=== PATIENT | female | born 1995 | race Caucasian/White ===

== ENCOUNTER → 2016-05-28 | Outpatient (CLI) | payer SELFPAY | LOC: RAD 09:33 | PROVIDERS: ATTEND Nurse Practitioner Women's Health | DX: Z34.01 Encounter for supervision of normal first pregnancy, first trimester (principal) | CPT/HCPCS: 76801 ==

== ENCOUNTER 2016-05-29 22:06 | Emergency (ER) | payer SELFPAY ==
--- NOTE | 2016-05-29 23:58 | ER Document Report ---
ED Medical Screen (RME) - General Chief Complaint: Abdominal Pain Stated Complaint: LOWER RIGHT ABDOMINAL/FLANK PAIN Notes: Patient is a 20-year-old female at 11 weeks gestation by first trimester ultrasound within the past 2 days that comes emergency department for chief complaint of right lower quadrant pain that started to become sharp 4 hours ago , pain is persistent and worsening, pain is worse with movement and walking. Patient denies nausea vomiting, denies other locations of pain, denies fever or chills, denies vaginal bleeding or discharge. TRAVEL OUTSIDE OF THE [place] IN LAST 30 DAYS: No - Related Data Allergies/Adverse Reactions: No Known Allergies Allergy (Unverified 05/29/16 23:44) Past Medical History - Social History Chew tobacco use (# tins/day): No Frequency of alcohol use: None Drug Abuse: None - Past Medical History Cardiac Medical History: Denies: Hx Hypertension Pulmonary Medical History: Denies: Hx COPD Neurological Medical History: Denies: Hx Cerebrovascular Accident Endocrine Medical History: Denies: Hx Diabetes Mellitus Type 2 Renal/ Medical History: Denies: Hx Peritoneal Dialysis, Hx Renal Insufficiency GI Medical History: Reports: Hx Ulcer - Found on endoscopy 3 years ago Physical Exam - Vital signs Vitals: Temp Pulse Resp BP Pulse Ox 98.0 F 112 H 22 H 120/78 100 05/29/16 23:14 05/29/16 23:14 05/29/16 23:14 05/29/16 23:14 05/29/16 23:14 - Abdominal Tenderness: Tender - patient cries out with palpation of RLQ, limited due to sitting, McBurney's point Course - Re-evaluation Re-evalutation: Ultrasound on 05/28/2016 shows living IUP at 10 weeks 4 days. Patient appears to be guarding right lower quadrant, slightly limited by chair exam. - Vital Signs Vital signs: Temp Pulse Resp BP Pulse Ox 98.0 F 112 H 22 H 120/78 100 05/29/16 23:14 05/29/16 23:14 05/29/16 23:14 05/29/16 23:14 05/29/16 23:14
[2016-05-30 03:15] LABS: ABSOLUTE EOSINOPHILS # (AUTO) 0.1 10^3/uL (0.0-0.6); ABSOLUTE LYMPHOCYTES (AUTO) 2.7 10^3/uL (0.5-4.7); ABSOLUTE MONOCYTES (AUTO) 0.4 10^3/uL (0.1-1.4); ABSOLUTE NEUT (AUTO) 6.5 10^3/uL (1.7-8.2); BASOPHILS % (AUTO) 0.5 % (0-2); EOSINOPHILS % (AUTO) 0.7 % (0-6); HEMATOCRIT 38.8 % (36.0-47.0); HEMOGLOBIN 13.1 g/dL (12.0-15.5); HGB HCT DIFFERENCE 0.5; LYMPHOCYTES % (AUTO) 27.5 % (13-45); MEAN CORPUSCULAR HEMOGLOBIN 29.2 pg (27.0-33.4); MEAN CORPUSCULAR HGB CONC 33.8 g/dL (32.0-36.0); MEAN CORPUSCULAR VOLUME 86 fl (80-97); MONOCYTES % (AUTO) 4.4 % (3-13); RED BLOOD COUNT 4.49 10^6/uL (3.72-5.28); RED CELL DISTRIBUTION WIDTH 13.2 % (11.5-14.0); SEGMENTED NEUTROPHILS % (AUTO) 66.9 % (42-78); WHITE BLOOD COUNT 9.7 10^3/uL (4.0-10.5)
[2016-05-30 03:16] LABS: APPEARANCE,URINE TURBID; BILIRUBIN,URINE NEGATIVE (NEGATIVE); GLUCOSE, URINE NEGATIVE (NEGATIVE); KETONES,URINE NEGATIVE (NEGATIVE); LEUKOCYTE ESTERASE,URINE LARGE (NEGATIVE); NITRITE,URINE NEGATIVE (NEGATIVE); PROTEIN,URINE 30 mg/dL (NEGATIVE); URINE SPECIFIC GRAVITY 1.031; UROBILINOGEN,URINE NEGATIVE mg/dL (<2.0)
[2016-05-30 03:24] LABS: ALANINE AMINOTRANSFERASE 29 U/L (9-52); ALBUMIN 4.2 g/dL (3.5-5.0); ALKALINE PHOSPHATASE 55 U/L (38-126); ANION GAP 14 (5-19); ASPARTATE AMINO TRANSFERASE 20 U/L (14-36); BILIRUBIN,TOTAL 0.4 mg/dL (0.2-1.3); BLOOD UREA NITROGEN 10 mg/dL (7-20); CALCIUM 10.5 mg/dL (8.4-10.2); CARBON DIOXIDE 23 mmol/L (22-30); CHLORIDE 102 mmol/L (98-107); CREATININE RESULT 0.65 mg/dL (0.52-1.25); GLUCOSE 89 mg/dL (75-110); POTASSIUM 4.3 mmol/L (3.6-5.0); SODIUM 138.8 mmol/L (137-145); TOTAL PROTEIN 7.7 g/dL (6.3-8.2)
[2016-05-30] MEDS ORDERED: CEFTRIAXONE 1 GM/D5W RTU 50 ML IV ONE (05:44)
[2016-05-30] MEDS ORDERED: NORMAL SALINE 1000 ML 1,000 ML IV ONE (05:44)
--- NOTE | 2016-05-30 06:16 | ER Document Report ---
ED GI/ - General Chief Complaint: Abdominal Pain Stated Complaint: LOWER RIGHT ABDOMINAL/FLANK PAIN Notes: Patient is a 20-year-old female at 11 weeks gestation by first trimester ultrasound within the past 2 days that comes emergency department for chief complaint of right sided abdominal pain that started to become sharp 4 hours ago , pain is persistent and worsening, pain is worse with movement and walking. Patient denies nausea vomiting, denies other locations of pain, denies fever or chills, denies vaginal bleeding or discharge. TRAVEL OUTSIDE OF THE [place] IN LAST 30 DAYS: No - Related Data Allergies/Adverse Reactions: No Known Allergies Allergy (Unverified 05/29/16 23:44) Past Medical History - General Information source: Patient - Social History Smoking Status: Former Smoker Chew tobacco use (# tins/day): No Frequency of alcohol use: None Drug Abuse: None Lives with: Family Family History: Other - Mother with stroke and brain tumor Father diabetes and hypertension Patient has suicidal ideation: No Patient has homicidal ideation: No - Past Medical History Cardiac Medical History: Denies: Hx Hypertension Pulmonary Medical History: Denies: Hx COPD Neurological Medical History: Denies: Hx Cerebrovascular Accident Endocrine Medical History: Denies: Hx Diabetes Mellitus Type 2 Renal/ Medical History: Denies: Hx Peritoneal Dialysis, Hx Renal Insufficiency GI Medical History: Reports: Hx Ulcer - Found on endoscopy 3 years ago - Immunizations Immunizations up to date: Yes Hx Diphtheria, Pertussis, Tetanus Vaccination: Yes Review of Systems - Review of Systems Constitutional: No symptoms reported EENT: No symptoms reported Cardiovascular: No symptoms reported Respiratory: No symptoms reported Gastrointestinal: See HPI Genitourinary: No symptoms reported Female Genitourinary: No symptoms reported Musculoskeletal: No symptoms reported Skin: No symptoms reported Hematologic/Lymphatic: No symptoms reported Neurological/Psychological: No symptoms reported Physical Exam - Vital signs Vitals: Temp Pulse Resp BP Pulse Ox 98.0 F 112 H 22 H 120/78 100 05/29/16 23:14 05/29/16 23:14 05/29/16 23:14 05/29/16 23:14 05/29/16 23:14 Interpretation: Normal - General General appearance: Appears well, Alert - HEENT Head: Normocephalic, Atraumatic Eyes: Normal Pupils: PERRL - Respiratory Respiratory status: No respiratory distress Chest status: Nontender Breath sounds: Normal Chest palpation: Normal - Cardiovascular Rhythm: Regular, Tachycardia Heart sounds: Normal auscultation, S1 appreciated, S2 appreciated Murmur: No - Abdominal Inspection: Normal Distension: No distension Bowel sounds: Normal Tenderness: Tender - Reexamination of the abdomen does not show right lower quadrant tenderness, tenderness is in the right upper quadrant, no guarding. No : Guarding Organomegaly: No organomegaly - Back Back: Normal, Nontender. No: Tender, CVA tenderness - No overt CVA tenderness - Extremities General upper extremity: Normal inspection, Nontender, Normal color, Normal ROM , Normal temperature General lower extremity: Normal inspection, Nontender, Normal color, Normal ROM , Normal temperature, Normal weight bearing. No: Karen's sign - Neurological Neuro grossly intact: Yes Cognition: Normal Orientation: AAOx4 [place] Coma Scale Eye Opening: Spontaneous [place] Coma Scale Verbal: Oriented [place] Coma Scale Motor: Obeys Commands [place] Coma Scale Total: 15 Speech: Normal Motor strength normal: LUE, RUE, LLE, RLE Sensory: Normal - Psychological Associated symptoms: Normal affect, Normal mood - Skin Skin Temperature: Warm Skin Moisture: Dry Skin Color: Normal Course - Re-evaluation Re-evalutation: Patient points to mid to lower abdomen all sitting and asked for her pain is, however when patient was reevaluated on the bed in the room examination shows that tenderness is much more concentrated in significant in the right upper quadrant. Patient reports that the right lower abdominal pain has resolved, there is no longer any tenderness in the right lower quadrant on reexamination. Ultrasound had already been performed from triage, discussed with Dr. Fuentes per [facility] guidelines, but this was unremarkable. CBC unremarkable, history unremarkable, urine is showing white blood cells but also has very large amount squamous epithelials. Patient is are on Keflex antibiotic reportedly, has several days left of the prescription, cultured, patient given Rocephin because patient also has right flank pain on examination. Patient declining any additional workup, states she has had similar pains in the past and she was told that she needed her gallbladder taken care of, states that she'll follow with her provider for additional evaluation of this. Patient given IV fluids, tachycardia resolved. Discussed return precautions. Patient states understanding and agreement. - Vital Signs Vital signs: Temp Pulse Resp BP Pulse Ox 98.3 F 83 16 110/59 L 99 05/30/16 07:41 05/30/16 07:41 02/02/17 07:41 05/30/16 07:41 05/30/16 07:41 - Laboratory Result Diagrams: 05/30/16 02:56 05/30/16 02:56 Laboratory results interpreted by me: 05/30/16 05/30/16 02:56 02:56 Calcium 10.5 H Urine Protein 30 H Ur Leukocyte Esterase LARGE H Urine Ascorbic Acid 40 H Discharge - Discharge Clinical Impression: Abdominal pain Qualifiers: Abdominal location: unspecified location Qualified Code(s): R10.9 - Unspecified abdominal pain Condition: Stable Disposition: HOME, SELF-CARE Additional Instructions: You have been given a dose of Rocephin, we have a urine culture growing in our lab, continue your Keflex. On reexamination your symptoms actually are suspected to be gallbladder in nature. Follow-up with your provider for continued evaluation and treatment. Return to the emergency department for any concerning or worsening symptoms including severe abdominal pain, vaginal bleeding, fever, uncontrolled vomiting , etc. Forms: Return to Work
[2016-05-30 07:45] VITALS: BP 110/59
== END 2016-05-30 07:45 | disposition home or self-care (01) ==
LOC: ER 22:06
DX: R10.9 Unspecified abdominal pain (principal); R10.30 Lower abdominal pain, unspecified; Z87.891 Personal history of nicotine dependence
CPT/HCPCS: 99284; 96365; 36415; 87086; 85025; 80053; 81001; 76705; J7030; J0696

== ENCOUNTER 2016-06-01 18:01 | Emergency (ER) | payer MEDICAID ==
--- NOTE | 2016-06-01 18:13 | ER Document Report ---
ED Medical Screen (RME) - General Stated Complaint: COUGHING UP BLOOD Notes: Patient states she was seen in the emergency room 3 days ago for abdominal and back pain. States possibility of gallbladder problems. Continues to have the pain, but now nausea and vomiting and unable to keep anything down. While in shower today patient felt like she was choking, and coughed up a blood clot. Nothing since. No known fever. Patient is about 11 weeks . Pain is worse with food. I have greeted and performed a rapid initial assessment of this patient. A comprehensive ED assessment and evaluation of the patient, analysis of test results and completion of the medical decision making process will be conducted by additional ED providers. TRAVEL OUTSIDE OF THE [place] IN LAST 30 DAYS: No - Related Data Allergies/Adverse Reactions: No Known Allergies Allergy (Verified 06/01/16 18:11) Past Medical History - Past Medical History Cardiac Medical History: Denies: Hx Hypertension Pulmonary Medical History: Denies: Hx COPD Neurological Medical History: Denies: Hx Cerebrovascular Accident Endocrine Medical History: Denies: Hx Diabetes Mellitus Type 2 Renal/ Medical History: Denies: Hx Peritoneal Dialysis, Hx Renal Insufficiency GI Medical History: Reports: Hx Ulcer - Found on endoscopy 3 years ago - Immunizations Immunizations up to date: Yes Hx Diphtheria, Pertussis, Tetanus Vaccination: Yes
[2016-06-01] MEDS ORDERED: DEXTROSE 5%-NORMAL SALINE 1,000 ML IV ONE (18:52)
[2016-06-01 18:53] LABS: ABSOLUTE EOSINOPHILS # (AUTO) 0.1 10^3/uL (0.0-0.6); ABSOLUTE LYMPHOCYTES (AUTO) 1.5 10^3/uL (0.5-4.7); ABSOLUTE MONOCYTES (AUTO) 0.5 10^3/uL (0.1-1.4); ABSOLUTE NEUT (AUTO) 7.3 10^3/uL (1.7-8.2); BASOPHILS % (AUTO) 0.3 % (0-2); EOSINOPHILS % (AUTO) 0.6 % (0-6); HEMATOCRIT 38.7 % (36.0-47.0); HEMOGLOBIN 12.9 g/dL (12.0-15.5); LYMPHOCYTES % (AUTO) 15.6 % (13-45); MEAN CORPUSCULAR HEMOGLOBIN 28.8 pg (27.0-33.4); MEAN CORPUSCULAR HGB CONC 33.3 g/dL (32.0-36.0); MEAN CORPUSCULAR VOLUME 87 fl (80-97); MONOCYTES % (AUTO) 5.2 % (3-13); RED BLOOD COUNT 4.47 10^6/uL (3.72-5.28); SEGMENTED NEUTROPHILS % (AUTO) 78.3 % (42-78); WHITE BLOOD COUNT 9.3 10^3/uL (4.0-10.5)
[2016-06-01] MEDS ORDERED: METOCLOPRAMIDE HCL INJ/PF 10 MG/2 ML SDV IV ONE (18:53)
[2016-06-01] MEDS ORDERED: DIPHENHYDRAMINE HCL 50 MG/ML VIAL IV ONE (18:53)
[2016-06-01 18:57] LABS: APPEARANCE,URINE SLIGHTLY-CLOUDY; BILIRUBIN,URINE NEGATIVE (NEGATIVE); GLUCOSE, URINE NEGATIVE (NEGATIVE); KETONES,URINE TRACE mg/dL (NEGATIVE); LEUKOCYTE ESTERASE,URINE TRACE (NEGATIVE); NITRITE,URINE NEGATIVE (NEGATIVE); PROTEIN,URINE NEGATIVE (NEGATIVE); URINE SPECIFIC GRAVITY 1.027; UROBILINOGEN,URINE NEGATIVE mg/dL (<2.0)
--- NOTE | 2016-06-01 19:01 | ER Document Report ---
ED General - General Chief Complaint: Abdominal Pain Stated Complaint: COUGHING UP BLOOD Time seen by provider: 18:59 Mode of Arrival: Ambulatory Information source: Patient Notes: This is a 20-year-old female 1 para 0, 11 weeks who does have a history of gallstones. The patient presents to the emergency room with upper abdominal pain, nausea and vomiting. Patient has been in the ER both here and at [place]. Last night she was treated with fluids and IV Zofran at [place] [facility]. She was released and presents with recurrent symptoms. Patient states she was in the shower when she coughed up some blood. She denies any chest pain or shortness of breath and the blood was more in the context of excessive vomiting. She describes it as some bloody flecks in the vomitus. He shouldn't does note being treated for UTI with Keflex (from the health Department). Her next appointment with the health Department is June 19. TRAVEL OUTSIDE OF THE [place] IN LAST 30 DAYS: No - HPI Onset: Last week Onset/Duration: Gradual Quality of pain: Dull Severity: Mild Pain Level: 1 Associated symptoms: Nausea, Vomiting, Weakness. denies: Chills, Fever Exacerbated by: Denies Relieved by: Denies Similar symptoms previously: Yes Recently seen / treated by doctor: Yes - Related Data Allergies/Adverse Reactions: No Known Allergies Allergy (Verified 06/01/16 18:11) Past Medical History - General Information source: Patient - Social History Smoking Status: Never Smoker Cigarette use (# per day): No Chew tobacco use (# tins/day): No Frequency of alcohol use: None Drug Abuse: None Lives with: Family Family History: Other - Mother with stroke and brain tumor Father diabetes and hypertension Patient has suicidal ideation: No Patient has homicidal ideation: No - Past Medical History Cardiac Medical History: Denies: Hx Hypertension Pulmonary Medical History: Denies: Hx COPD Neurological Medical History: Denies: Hx Cerebrovascular Accident Endocrine Medical History: Reports: None. Denies: Hx Diabetes Mellitus Type 2 Renal/ Medical History: Denies: Hx Peritoneal Dialysis, Hx Renal Insufficiency Malignancy Medical History: Reports: None GI Medical History: Reports: Hx Ulcer - Found on endoscopy 3 years ago Psychiatric Medical History: Reports: None Traumatic Medical History: Reports: None Infectious Medical History: Reports: None Surgical Hx: Negative - Immunizations Immunizations up to date: Yes Hx Diphtheria, Pertussis, Tetanus Vaccination: Yes Review of Systems - Review of Systems Notes: Review of systems: Constitutional: Denies fever, chills. EENT: Denies ear pain, sinus tenderness, throat pain, throat swelling. Cardiovascular: Denies chest pain, palpitations, dyspnea or edema. Respiratory: Denies wheezing, cough, hemoptysis. Abdomen: Positive nausea, positive vomiting. Patient did have small amount of flecks of blood in the vomitus after a forceful balm vomiting once. She does state she's had some upper abdominal discomfort. Denies BRBPR or melena. Genitourinary: Denies dysuria, pyuria, hematuria, flank pain. Musculoskeletal: denies joint pain or swelling, denies back pain. Neurologic: Denies headache, photophobia, neck stiffness, weakness. Denies loss of bowel or bladder function. Denies saddle anesthesia. Skin: Denies rash, lesions. Physical Exam - Vital signs Vitals: Temp Pulse Resp BP Pulse Ox 97.7 F 125 H 20 121/72 100 06/01/16 18:09 06/01/16 18:09 06/01/16 18:09 06/01/16 18:09 06/01/16 18:09 Notes: Physical exam: GENERAL: 20-year-old female, alert and oriented 3, no acute distress. HEAD: Atraumatic, normocephalic. EYES: Pupils equal round and reactive to light, extraocular movements intact, sclera anicteric, conjunctiva are normal. ENT: TMs normal, nares patent, oropharynx clear without exudates. Moist mucous membranes. NECK: Normal range of motion, supple without lymphadenopathy or JVD. LUNGS: Breath sounds clear to auscultation bilaterally and equal. No wheezes rales or rhonchi. HEART: Regular rate and rhythm without murmurs, rubs or gallops. ABDOMEN: Soft, normoactive bowel sounds. Mild upper abdominal tenderness without rebound or guarding. No masses appreciated. EXTREMITIES: Normal range of motion, no pitting or edema. No clubbing or cyanosis. NEUROLOGICAL: Cranial nerves II through XII grossly intact. Normal speech, normal gait. PSYCH: Normal mood, normal affect. SKIN: Warm, Dry, normal turgor, no rashes or lesions noted. Course - Re-evaluation Re-evalutation: 06/01/16 19:02 Note: I reviewed the patient's urine culture which does not show any growth after 2 days. 06/02/16 00:23 Patient was given IV fluids, IV Reglan and her symptoms are much improved. Right upper quadrant ultrasound is normal. Patient is ready to go home. I did discuss the symptoms with her. I did reassure her. I will send her home with some Reglan. - Vital Signs Vital signs: Temp Pulse Resp BP Pulse Ox 98.2 F 18 L 18 113/55 L 99 06/01/16 22:38 06/01/16 22:38 06/01/16 22:38 06/01/16 22:38 06/01/16 22:38 - Laboratory Result Diagrams: 06/01/16 18:30 06/01/16 18:30 Laboratory results interpreted by me: 06/01/16 06/01/16 06/01/16 18:30 18:30 18:30 Seg Neutrophils % 78.3 H Carbon Dioxide 21 L Creatinine 0.51 L Beta HCG, Quant 322372.00 H Urine Ketones TRACE H Ur Leukocyte Esterase TRACE H - Diagnostic Test Radiology reviewed: Image reviewed, Reports reviewed - Right upper quadrant ultrasound was normal. Discharge - Discharge Clinical Impression: Hyperemesis gravidarum Condition: Stable Disposition: HOME, SELF-CARE Instructions: Intravenous (IV) Fluids ([facility]), Antinausea Medication ([facility]) Additional Instructions: Recommendations: As we discussed, the gallbladder ultrasound looked good. The blood in the vomit could be from forceful vomiting/scraping against the esophagus. The treatment would just be to treat the nausea. I prescribed Reglan for nausea: This is safe in . Sometimes the Reglan can make you feel little jittery, take Benadryl if that occurs. You can try [id number] vitamin D6,Uniusom, peppermint: These have been found useful with nausea. Eat small frequent meals. Return to the emergency room for fever (temperature greater than 100.5), worsening pain or any concerns he getting worse. Follow-up with the health Department and then [facility]: I gave the number for women's health clinic. Prescriptions: Diphenhydramine HCl [Benadryl 25 mg Capsule] 25 mg PO Q4 #10 capsule Metoclopramide HCl [Reglan 10 mg Tablet] 1 - 2 tab PO ASDIR PRN #25 tablet PRN Reason: Referrals: BIPIN ENGEL MD [ACTIVE STAFF] - Follow up as needed (As is the number for the women's health clinic.)
[2016-06-01 19:09] LABS: ALANINE AMINOTRANSFERASE 22 U/L (9-52); ALBUMIN 4.7 g/dL (3.5-5.0); ALKALINE PHOSPHATASE 53 U/L (38-126); ANION GAP 15 (5-19); ASPARTATE AMINO TRANSFERASE 20 U/L (14-36); BILIRUBIN,TOTAL 0.4 mg/dL (0.2-1.3); BLOOD UREA NITROGEN 10 mg/dL (7-20); CALCIUM 9.9 mg/dL (8.4-10.2); CARBON DIOXIDE 21 mmol/L (22-30); CHLORIDE 103 mmol/L (98-107); CREATININE RESULT 0.51 mg/dL (0.52-1.25); GLUCOSE 87 mg/dL (75-110); LIPASE 146.1 U/L (23-300); SODIUM 139.1 mmol/L (137-145); TOTAL PROTEIN 7.8 g/dL (6.3-8.2)
[2016-06-01 22:58] VITALS: BP 113/55
== END 2016-06-01 22:38 | disposition home or self-care (01) ==
LOC: ER 18:01
DX: O21.0 Mild hyperemesis gravidarum (principal); O26.891 Other specified pregnancy related conditions, first trimester; R53.1 Weakness; R10.10 Upper abdominal pain, unspecified; Z3A.11 11 weeks gestation of pregnancy; Z87.440 Personal history of urinary (tract) infections
CPT/HCPCS: 99284; 96375; 96365; 36415; 84702; 83690; 85025; 80053; 81001; 76700; 93976; J1200; J2765

== ENCOUNTER 2016-06-25 14:30 | Emergency (ER) | payer MEDICAID ==
--- NOTE | 2016-06-25 14:50 | ER Document Report ---
ED Medical Screen (RME) - General Chief Complaint: Headache Stated Complaint: HEADACHE Time seen by provider: 14:47 Notes: Patient comes in today complaining of a continuous headache for the last 2-3 days. She also has nausea and vomiting. Recently put on diclegis by her OB. Noticed brown vaginal discharge today. Denies abdominal pain, but does state she has a lot of bloating in the upper abdomen after eating. I have greeted and performed a rapid initial assessment of this patient. A comprehensive ED assessment and evaluation of the patient, analysis of test results and completion of the medical decision making process will be conducted by additional ED providers. TRAVEL OUTSIDE OF THE [place] IN LAST 30 DAYS: No - Related Data Allergies/Adverse Reactions: No Known Allergies Allergy (Verified 06/25/16 14:43) Past Medical History - Social History Chew tobacco use (# tins/day): No Frequency of alcohol use: None Drug Abuse: None - Past Medical History Cardiac Medical History: Denies: Hx Hypertension Pulmonary Medical History: Denies: Hx COPD Neurological Medical History: Denies: Hx Cerebrovascular Accident Endocrine Medical History: Denies: Hx Diabetes Mellitus Type 2 Renal/ Medical History: Denies: Hx Peritoneal Dialysis, Hx Renal Insufficiency GI Medical History: Reports: Hx Ulcer - Found on endoscopy 3 years ago - Immunizations Immunizations up to date: Yes Hx Diphtheria, Pertussis, Tetanus Vaccination: Yes Physical Exam - Vital signs Vitals: Temp Pulse Resp BP Pulse Ox 98.1 F 124 H 16 116/69 98 06/25/16 14:34 06/25/16 14:34 06/25/16 14:34 06/25/16 14:34 06/25/16 14:34 - Abdominal Inspection: Normal Distension: Other - Pt 15 weeks Bowel sounds: Normal Tenderness: Nontender Course - Vital Signs Vital signs: Temp Pulse Resp BP Pulse Ox 98.1 F 124 H 16 116/69 98 06/25/16 14:34 06/25/16 14:34 06/25/16 14:34 06/25/16 14:34 06/25/16 14:34
[2016-06-25 15:14] LABS: ABSOLUTE LYMPHOCYTES (AUTO) 1.2 10^3/uL (0.5-4.7); ABSOLUTE MONOCYTES (AUTO) 0.4 10^3/uL (0.1-1.4); ABSOLUTE NEUT (AUTO) 5.9 10^3/uL (1.7-8.2); BASOPHILS % (AUTO) 0.4 % (0-2); EOSINOPHILS % (AUTO) 0.5 % (0-6); HEMOGLOBIN 12.9 g/dL (12.0-15.5); HGB HCT DIFFERENCE 0.7; MEAN CORPUSCULAR HEMOGLOBIN 29.6 pg (27.0-33.4); MEAN CORPUSCULAR VOLUME 87 fl (80-97); MONOCYTES % (AUTO) 4.7 % (3-13); RED BLOOD COUNT 4.37 10^6/uL (3.72-5.28); RED CELL DISTRIBUTION WIDTH 13.5 % (11.5-14.0); SEGMENTED NEUTROPHILS % (AUTO) 78.4 % (42-78); WHITE BLOOD COUNT 7.6 10^3/uL (4.0-10.5)
[2016-06-25 15:29] LABS: ALANINE AMINOTRANSFERASE 18 U/L (9-52); ALBUMIN 4.4 g/dL (3.5-5.0); ALKALINE PHOSPHATASE 51 U/L (38-126); ANION GAP 11 (5-19); ASPARTATE AMINO TRANSFERASE 19 U/L (14-36); BILIRUBIN,TOTAL 0.6 mg/dL (0.2-1.3); BLOOD UREA NITROGEN 8 mg/dL (7-20); CALCIUM 10.4 mg/dL (8.4-10.2); CARBON DIOXIDE 24 mmol/L (22-30); CHLORIDE 102 mmol/L (98-107); CREATININE RESULT 0.58 mg/dL (0.52-1.25); GLUCOSE 87 mg/dL (75-110); POTASSIUM 4.5 mmol/L (3.6-5.0); SODIUM 137.3 mmol/L (137-145); TOTAL PROTEIN 7.5 g/dL (6.3-8.2)
[2016-06-25 15:50] LABS: APPEARANCE,URINE CLOUDY; BILIRUBIN,URINE SMALL (NEGATIVE); CALCIUM OXALATE CRYSTALS,URINE MANY /HPF; GLUCOSE, URINE NEGATIVE (NEGATIVE); KETONES,URINE NEGATIVE (NEGATIVE); LEUKOCYTE ESTERASE,URINE SMALL (NEGATIVE); NITRITE,URINE NEGATIVE (NEGATIVE); PROTEIN,URINE 30 mg/dL (NEGATIVE); URINE SPECIFIC GRAVITY 1.039
[2016-06-25] MEDS ORDERED: DIPHENHYDRAMINE HCL 50 MG CAPSULE PO ONE (15:54)
[2016-06-25] MEDS ORDERED: METOCLOPRAMIDE HCL 10 MG TABLET PO ONE (15:54)
[2016-06-25] MEDS ORDERED: ACETAMINOPHEN 325 MG TABLET PO ONE (15:54)
--- NOTE | 2016-06-25 16:06 | ER Document Report ---
ED General - General Chief Complaint: Headache Stated Complaint: HEADACHE Mode of Arrival: Ambulatory Information source: Patient Notes: 20-year-old female who is 15 weeks presents with complaints of nausea vomiting throughout her . Patient notes she was here with similar complaints in the past. Has been treated by her DIRECTOR CHILD with no improvement of symptoms. Patient denies any fevers or chills denies any abdominal pain. Patient notes blood type is a positive and did have some dark spotting last night TRAVEL OUTSIDE OF THE [place] IN LAST 30 DAYS: No - HPI Onset: Other Onset/Duration: Intermittent Quality of pain: No pain Severity: Mild Pain Level: Denies Associated symptoms: Nausea, Vomiting Exacerbated by: Denies Relieved by: Denies Similar symptoms previously: Yes Recently seen / treated by doctor: Yes - Related Data Allergies/Adverse Reactions: No Known Allergies Allergy (Verified 06/25/16 14:43) Past Medical History - Social History Smoking Status: Never Smoker Cigarette use (# per day): No Chew tobacco use (# tins/day): No Smoking Education Provided: No Frequency of alcohol use: None Drug Abuse: None Family History: Reviewed & Not Pertinent, Other - Mother with stroke and brain tumor Father diabetes and hypertension Patient has suicidal ideation: No Patient has homicidal ideation: No - Past Medical History Cardiac Medical History: Denies: Hx Hypertension Pulmonary Medical History: Denies: Hx COPD Neurological Medical History: Denies: Hx Cerebrovascular Accident Endocrine Medical History: Denies: Hx Diabetes Mellitus Type 2 Renal/ Medical History: Denies: Hx Peritoneal Dialysis, Hx Renal Insufficiency GI Medical History: Reports: Hx Ulcer - Found on endoscopy 3 years ago - Immunizations Immunizations up to date: Yes Hx Diphtheria, Pertussis, Tetanus Vaccination: Yes Review of Systems - Review of Systems Notes: REVIEW OF SYSTEMS: CONSTITUTIONAL : Denies fever, chills, or sweats. Denies recent illness. EENT: Denies eye, ear, throat, or mouth pain or symptoms. Denies nasal or sinus congestion or discharge. Denies throat, tongue, or mouth swelling or difficulty swallowing. CARDIOVASCULAR: Denies chest pain. Denies palpitations or racing or irregular heart beat. Denies ankle edema. RESPIRATORY: Denies cough, cold, or chest congestion. Denies shortness of breath, difficulty breathing, or wheezing. GASTROINTESTINAL: Admits nausea vomiting GENITOURINARY: Denies difficulty urinating, painful urination, burning, frequency, blood in urine, or discharge. FEMALE GENITOURINARY: Admits to dark discharge MUSCULOSKELETAL: Denies back or neck pain or stiffness. Denies joint pain or swelling. SKIN: Denies rash, lesions or sores. HEMATOLOGIC : Denies easy bruising or bleeding. LYMPHATIC: Denies swollen, enlarged glands. NEUROLOGICAL: Denies confusion or altered mental status. Denies passing out or loss of consciousness. Denies dizziness or lightheadedness. Denies headache. Denies weakness or paralysis or loss of use of either side. Denies problems with gait or speech. Denies sensory loss, numbness, or tingling. Denies seizures. PSYCHIATRIC: Denies anxiety or stress. Denies depression, suicidal ideation, or homicidal ideation. ALL OTHER SYSTEMS REVIEWED AND NEGATIVE. Dictation was performed using [employer] voice recognition software PHYSICAL EXAMINATION: GENERAL: Well-appearing, well-nourished and in no acute distress. HEAD: Atraumatic, normocephalic. EYES: Pupils equal round and reactive to light, extraocular movements intact, conjunctiva are normal. ENT: Nares patent, oropharynx clear without exudates. Moist mucous membranes. NECK: Normal range of motion, supple without lymphadenopathy LUNGS: Breath sounds clear to auscultation bilaterally and equal. No wheezes rales or rhonchi. HEART: Regular rate and rhythm without murmurs ABDOMEN: Soft, nontender, nondistended abdomen. No guarding, no rebound. No masses appreciated. Female : deferred Musculoskeletal: Normal range of motion, no pitting or edema. No cyanosis. NEUROLOGICAL: Cranial nerves grossly intact. Normal speech, normal gait. Normal sensory, motor exams PSYCH: Normal mood, normal affect. SKIN: Warm, Dry, normal turgor, no rashes or lesions noted. Physical Exam - Vital signs Vitals: Temp Pulse Resp BP Pulse Ox 98.1 F 124 H 16 116/69 98 06/25/16 14:34 06/25/16 14:34 06/25/16 14:34 06/25/16 14:34 06/25/16 14:34 Course - Re-evaluation Re-evalutation: 06/25/16 16:06 Ultrasound was performed at bedside which noted good movement heart rate 158, patient blood type is a positive does not require a venogram workup. She will be given nausea control is otherwise stable to follow-up with her own OB/ COMMUNICATION EQUIPMENT MECHANIC. Patient has been instructed regarding threatened miscarriage information 06/25/16 16:47 Patient given nausea control will be discharged home to follow-up with DIRECTOR CHILD's otherwise stable After performing a Medical Screening Examination, I estimate there is LOW risk for ACUTE APPENDICITIS, BOWEL OBSTRUCTION, ACUTE CHOLECYSTITIS, PERFORATED DIVERTICULITIS, INCARCERATED HERNIA, PANCREATITIS, PELVIC INFLAMMATORY DISEASE, PERFORATED ULCER, ECTOPIC , or TUBO-OVARIAN ABSCESS, thus I consider the discharge disposition reasonable. Also, there is no evidence or peritonitis , sepsis, or toxicity. The patient and I have discussed the diagnosis and risks , and we agree with discharging home with close follow-up with the understanding that symptoms and presentations can change. We also discussed returning to the Emergency Department immediately if new or worsening symptoms occur. We have discussed the symptoms which are most concerning (e.g., bloody stool, fever, changing or worsening pain, vomiting) that necessitate immediate return. - Vital Signs Vital signs: Temp Pulse Resp BP Pulse Ox 98.1 F 124 H 16 116/69 98 06/25/16 14:34 06/25/16 14:34 06/25/16 14:34 06/25/16 14:34 06/25/16 14:34 - Laboratory Result Diagrams: 06/25/16 14:56 06/25/16 14:56 Laboratory results interpreted by me: 06/25/16 06/25/16 06/25/16 14:51 14:56 14:56 Plt Count 148 L Seg Neutrophils % 78.4 H Calcium 10.4 H Urine Protein 30 H Urine Bilirubin SMALL H Urine Urobilinogen 2.0 H Ur Leukocyte Esterase SMALL H - Diagnostic Test Radiology reviewed: Image reviewed Discharge - Discharge Clinical Impression: Nausea/vomiting in Headache Qualifiers: Headache type: unspecified Headache chronicity pattern: acute headache Intractability: not intractable Qualified Code(s): R51 - Headache Condition: Stable Disposition: HOME, SELF-CARE Instructions: Vomiting ([facility]), Headache ([facility]) Additional Instructions: Follow up with your physician tomorrow for further care or return to the ED IMMEDIATELY if symptoms worsen or new concerns occur Prescriptions: Promethazine HCl 25 mg RC Q6 #30 supp.rect
[2016-06-25] MEDS ORDERED: PROMETHAZINE HCL 25 MG TABLET PO ONE (16:47)
[2016-06-25 17:49] VITALS: BP 106/64
== END 2016-06-25 17:49 | disposition home or self-care (01) ==
LOC: ER 14:30
DX: O26.892 Other specified pregnancy related conditions, second trimester (principal); R51 Headache; O21.9 Vomiting of pregnancy, unspecified; O26.852 Spotting complicating pregnancy, second trimester; Z3A.15 15 weeks gestation of pregnancy
CPT/HCPCS: 99284; 36415; 85025; 80053; 81001; J3490 ×4

== ENCOUNTER 2016-08-24 16:56 | Outpatient (CLI) | payer MEDICAID ==
[2016-08-24 18:10] LABS: APPEARANCE,URINE CLOUDY; BILIRUBIN,URINE NEGATIVE (NEGATIVE); GLUCOSE, URINE NEGATIVE (NEGATIVE); KETONES,URINE NEGATIVE (NEGATIVE); LEUKOCYTE ESTERASE,URINE TRACE (NEGATIVE); NITRITE,URINE NEGATIVE (NEGATIVE); PROTEIN,URINE NEGATIVE (NEGATIVE); URINE SPECIFIC GRAVITY 1.015; UROBILINOGEN,URINE NEGATIVE mg/dL (<2.0)
[2016-08-24 18:28] LABS: URINE BARBITURATES SCREEN NEGATIVE; URINE METHADONE SCREEN NEGATIVE; URINE OPIATES LOW NEGATIVE; URINE PHENCYCLIDINE SCREEN NEGATIVE
== END 2016-08-24 18:40 | disposition home or self-care (01) ==
LOC: LC 16:56
PROVIDERS: ATTEND Specialist
PROC: 4A1HXCZ Monitoring of Products of Conception, Cardiac Rate, External Approach (ICD-10-PCS; principal; 2016-08-24)
DX: O47.02 False labor before 37 completed weeks of gestation, second trimester (principal); Z3A.24 24 weeks gestation of pregnancy
CPT/HCPCS: 80307; 81001

== ENCOUNTER 2016-09-15 11:58 | Outpatient (CLI) | payer MEDICAID ==
[2016-09-15 12:35] LABS: APPEARANCE,URINE SLIGHTLY-CLOUDY; BILIRUBIN,URINE NEGATIVE (NEGATIVE); GLUCOSE, URINE NEGATIVE (NEGATIVE); KETONES,URINE NEGATIVE (NEGATIVE); LEUKOCYTE ESTERASE,URINE TRACE (NEGATIVE); NITRITE,URINE NEGATIVE (NEGATIVE); PROTEIN,URINE NEGATIVE (NEGATIVE); URINE SPECIFIC GRAVITY 1.011; UROBILINOGEN,URINE NEGATIVE mg/dL (<2.0)
[2016-09-15 12:55] LABS: ABSOLUTE LYMPHOCYTES (AUTO) 1.2 10^3/uL (0.5-4.7); ABSOLUTE MONOCYTES (AUTO) 0.5 10^3/uL (0.1-1.4); ABSOLUTE NEUT (AUTO) 6.9 10^3/uL (1.7-8.2); BASOPHILS % (AUTO) 0.2 % (0-2); EOSINOPHILS % (AUTO) 0.5 % (0-6); HEMATOCRIT 33.1 % (36.0-47.0); HGB HCT DIFFERENCE -0.1; LYMPHOCYTES % (AUTO) 13.7 % (13-45); MEAN CORPUSCULAR HEMOGLOBIN 29.1 pg (27.0-33.4); MEAN CORPUSCULAR HGB CONC 33.1 g/dL (32.0-36.0); MEAN CORPUSCULAR VOLUME 88 fl (80-97); MONOCYTES % (AUTO) 5.3 % (3-13); RED BLOOD COUNT 3.77 10^6/uL (3.72-5.28); RED CELL DISTRIBUTION WIDTH 13.6 % (11.5-14.0); SEGMENTED NEUTROPHILS % (AUTO) 80.3 % (42-78); WHITE BLOOD COUNT 8.6 10^3/uL (4.0-10.5)
[2016-09-15 13:06] LABS: URINE BARBITURATES SCREEN NEGATIVE; URINE METHADONE SCREEN NEGATIVE; URINE OPIATES LOW NEGATIVE; URINE PHENCYCLIDINE SCREEN NEGATIVE
[2016-09-15 13:11] LABS: ALANINE AMINOTRANSFERASE 33 U/L (9-52); ALBUMIN 3.5 g/dL (3.5-5.0); ALKALINE PHOSPHATASE 69 U/L (38-126); ANION GAP 10 (5-19); ASPARTATE AMINO TRANSFERASE 19 U/L (14-36); BILIRUBIN,DIRECT 0.1 mg/dL (0.0-0.4); BILIRUBIN,TOTAL 0.3 mg/dL (0.2-1.3); BLOOD UREA NITROGEN 7 mg/dL (7-20); CALCIUM 9.2 mg/dL (8.4-10.2); CARBON DIOXIDE 22 mmol/L (22-30); CHLORIDE 105 mmol/L (98-107); CREATININE RESULT 0.55 mg/dL (0.52-1.25); GLUCOSE 80 mg/dL (75-110); LDH 263 U/L (313-618); POTASSIUM 4.3 mmol/L (3.6-5.0); SODIUM 137.4 mmol/L (137-145); TOTAL PROTEIN 6.3 g/dL (6.3-8.2); URIC ACID 4.3 mg/dL (2.5-6.2)
[2016-09-15 13:12] LABS: URINE CREATININE 131.6 mg/dL (16-327); URINE PROTEIN 9.9 mg/dL (<12)
== END 2016-09-15 14:11 | disposition home or self-care (01) ==
LOC: LC 11:58
PROVIDERS: ATTEND Obstetrics & Gynecology
PROC: 4A1HXCZ Monitoring of Products of Conception, Cardiac Rate, External Approach (ICD-10-PCS; principal; 2016-09-15)
DX: O47.03 False labor before 37 completed weeks of gestation, third trimester (principal); O46.92 Antepartum hemorrhage, unspecified, second trimester; Z3A.25 25 weeks gestation of pregnancy
CPT/HCPCS: 36415; 76805; 80053; 80307; 81001; 82570; 83615; 84156; 84550; 85025; 93976

== ENCOUNTER 2016-09-21 14:09 | Outpatient (CLI) | payer MEDICAID ==
[2016-09-21 15:12] LABS: APPEARANCE,URINE CLEAR; BILIRUBIN,URINE NEGATIVE (NEGATIVE); GLUCOSE, URINE NEGATIVE (NEGATIVE); KETONES,URINE NEGATIVE (NEGATIVE); LEUKOCYTE ESTERASE,URINE NEGATIVE (NEGATIVE); NITRITE,URINE NEGATIVE (NEGATIVE); PROTEIN,URINE NEGATIVE (NEGATIVE); URINE SPECIFIC GRAVITY 1.002; UROBILINOGEN,URINE NEGATIVE mg/dL (<2.0)
[2016-09-21 15:28] LABS: URINE BARBITURATES SCREEN NEGATIVE; URINE METHADONE SCREEN NEGATIVE; URINE OPIATES LOW NEGATIVE; URINE PHENCYCLIDINE SCREEN NEGATIVE
--- NOTE | 2016-09-21 17:04 | RADIOLOGY REPORT (SQ) ---
EXAM DESCRIPTION: U/S OB LIMITED COMPLETED DATE/TIME: 09/21/2016 4:55 pm REASON FOR STUDY: Ctx, Cervical length and ELVA COMPARISON: None. TECHNIQUE: Limited transvaginal grayscale ultrasound for evaluation of specific requested obstetrica l parameters. LIMITATIONS: None. FINDINGS: CERVICAL LENGTH: 3.9 cm Closed. ELVA: 14.9 cm. FHR: 143 beats per minute. PRESENTATION: Breech OTHER: No other significant findings. IMPRESSION: LIMITED OBSTETRICAL ULTRASOUND WITH MEASURED PARAMETERS DELINEATED ABOVE. Trimester of : Third trimester - 28 weeks to delivery. TECHNICAL DOCUMENTATION: JOB ID: [id number] [employer]- All Rights Reserved
== END 2016-09-21 17:29 | disposition home or self-care (01) ==
LOC: LC 14:09
PROVIDERS: ATTEND Obstetrics & Gynecology
PROC: 4A1HXCZ Monitoring of Products of Conception, Cardiac Rate, External Approach (ICD-10-PCS; principal; 2016-09-21)
DX: O47.03 False labor before 37 completed weeks of gestation, third trimester (principal); Z3A.28 28 weeks gestation of pregnancy
CPT/HCPCS: 76815; 80307; 81001

== ENCOUNTER 2016-10-22 15:17 | Outpatient (CLI) | payer MEDICAID ==
[2016-10-22 16:07] LABS: APPEARANCE,URINE SLIGHTLY-CLOUDY; BILIRUBIN,URINE NEGATIVE (NEGATIVE); GLUCOSE, URINE NEGATIVE (NEGATIVE); KETONES,URINE TRACE mg/dL (NEGATIVE); LEUKOCYTE ESTERASE,URINE SMALL (NEGATIVE); NITRITE,URINE NEGATIVE (NEGATIVE); PROTEIN,URINE NEGATIVE (NEGATIVE); URINE SPECIFIC GRAVITY 1.017; UROBILINOGEN,URINE NEGATIVE mg/dL (<2.0)
[2016-10-22 16:21] LABS: URINE BARBITURATES SCREEN NEGATIVE; URINE METHADONE SCREEN NEGATIVE; URINE OPIATES LOW NEGATIVE; URINE PHENCYCLIDINE SCREEN NEGATIVE
--- NOTE | 2016-10-22 18:46 | RADIOLOGY REPORT (SQ) ---
EXAM DESCRIPTION: U/S OB LIMITED COMPLETED DATE/TIME: 10/22/2016 6:15 pm REASON FOR STUDY: cervical length, r/o labor COMPARISON: None. TECHNIQUE: Limited transvaginal and transabdominal grayscale ultrasound for evaluation of specific r equested obstetrical parameters. LIMITATIONS: None. FINDINGS: CERVICAL LENGTH: 4.6 cm Closed. ELVA: 11.7 cm. FHR: 149 beats per minute. PRESENTATION: Breech. OTHER: No other significant findings. IMPRESSION: LIMITED OBSTETRICAL ULTRASOUND WITH MEASURED PARAMETERS DELINEATED ABOVE. Trimester of : Third trimester - 28 weeks to delivery. TECHNICAL DOCUMENTATION: JOB ID: [id number] [employer]- All Rights Reserved
--- NOTE | 2016-10-22 19:53 | Non Stress Test Report ---
Non Stress Test Datetime Report Generated by CPN: 10/22/2016 19:53 DEMOGRAPHIC EGA NST: 32.3 INDICATION Indication for Study: Ordered by Provider Indication for Study (NST) Other: LC MONITORING Time on Monitor: 10/22/2016 16:04 Time off Monitor: 10/22/2016 16:47 NST Duration: 43 NST INTERVENTIONS NST Interventions: PO Hydration Physician Notified NST: Dr. Beckham BABY A: [id number] BABY A Movement : Present Contraction Frequency : x0 FHR Baseline : 150 Accelerations : 15X15 Decelerations : None Variability : Moderate 6-25bpm NST Review: Meets Criteria for Reactive NST NST Review and Verified By : Juan R Irizarry RN NST Results: Reactive NST REPORT Report Trigger: Send Report
== END 2016-10-22 19:51 | disposition home or self-care (01) ==
LOC: LC 15:17
PROVIDERS: ATTEND Student in an Organized Health Care Education/Training Program
PROC: 4A1HXCZ Monitoring of Products of Conception, Cardiac Rate, External Approach (ICD-10-PCS; principal; 2016-10-22)
DX: O47.03 False labor before 37 completed weeks of gestation, third trimester (principal); Z3A.32 32 weeks gestation of pregnancy
CPT/HCPCS: 59025; 76815; 80307; 81001; 87086; 87210

== ENCOUNTER 2016-11-20 21:24 | Outpatient (CLI) | payer MEDICAID ==
[2016-11-20 22:02] LABS: APPEARANCE,URINE SLIGHTLY-CLOUDY; BILIRUBIN,URINE NEGATIVE (NEGATIVE); GLUCOSE, URINE NEGATIVE (NEGATIVE); KETONES,URINE NEGATIVE (NEGATIVE); LEUKOCYTE ESTERASE,URINE TRACE (NEGATIVE); NITRITE,URINE NEGATIVE (NEGATIVE); PROTEIN,URINE NEGATIVE (NEGATIVE); URINE SPECIFIC GRAVITY 1.013; UROBILINOGEN,URINE NEGATIVE mg/dL (<2.0)
[2016-11-20 22:15] LABS: URINE BARBITURATES SCREEN NEGATIVE; URINE METHADONE SCREEN NEGATIVE; URINE OPIATES LOW NEGATIVE; URINE PHENCYCLIDINE SCREEN NEGATIVE
[2016-11-20 22:18] LABS: AMNISURE (ROM) NEGATIVE (NEGATIVE)
--- NOTE | 2016-11-20 22:30 | RADIOLOGY REPORT (SQ) ---
EXAM DESCRIPTION: U/S OB LIMITED COMPLETED DATE/TIME: 11/20/2016 10:22 pm REASON FOR STUDY: presentation, ELVA, placenta location r/o previa COMPARISON: None. TECHNIQUE: Limited transvaginal and transabdominal grayscale ultrasound for evaluation of specific r equested obstetrical parameters. LIMITATIONS: None. FINDINGS: CERVICAL LENGTH: 3.5 cm Closed. ELVA: 15.4 cm. FHR: 162 beats per minute. PRESENTATION: Cephalic. OTHER: Posterior placenta is identified. IMPRESSION: LIMITED OBSTETRICAL ULTRASOUND WITH MEASURED PARAMETERS DELINEATED ABOVE. Trimester of : Third trimester - 28 weeks to delivery. TECHNICAL DOCUMENTATION: JOB ID: [id number] [email or web address]- All Rights Reserved
== END 2016-11-20 23:50 | disposition home or self-care (01) ==
LOC: LC 21:24
PROVIDERS: ATTEND Student in an Organized Health Care Education/Training Program
PROC: 4A1HXCZ Monitoring of Products of Conception, Cardiac Rate, External Approach (ICD-10-PCS; principal; 2016-11-20)
DX: O47.03 False labor before 37 completed weeks of gestation, third trimester (principal); Z3A.36 36 weeks gestation of pregnancy
CPT/HCPCS: 59025; 76815; 80307; 81001; 84112

== ENCOUNTER 2016-11-27 11:44 | Outpatient (CLI) | payer MEDICAID ==
--- NOTE | 2016-11-27 12:28 | Non Stress Test Report ---
Non Stress Test Datetime Report Generated by CPN: 11/27/2016 12:28 DEMOGRAPHIC EGA NST: 37.4 EGA NST: 36.4 INDICATION Indication for Study: Ordered by Provider Indication for Study: Ordered by Provider Indication for Study (NST) Other: repeat from office VITAL SIGNS Temperature - NST: 98.5 Pulse - NST: 98 RESP - NST: 16 NBPSYS NST: 112 NBPDIA NST: 58 MONITORING Monitor Explained: Monitor Explained; Test Explained; Patient Verbalized Understanding Monitor Explained: Monitor Explained; Test Explained; Patient Verbalized Understanding Time on Monitor: 11/27/2016 12:00 Time on Monitor: 11/20/2016 23:19 Time off Monitor: 11/27/2016 12:20 Time off Monitor: 11/20/2016 23:44 NST Duration: 20 NST Duration: 25 NST INTERVENTIONS NST Interventions: PO Hydration; Reposition Patient NST Interventions: PO Hydration; Reposition Patient Physician Notified NST: Dr. Hernandez reviewed strip Physician Notified NST: Beckham BABY A: [id number] BABY A Movement : Present Movement : Present Contraction Frequency : 0 Contraction Frequency : none FHR Baseline : 150 FHR Baseline : 135 Accelerations : 15X15 Accelerations : 15X15 Decelerations : None Decelerations : None Variability : Moderate 6-25bpm Variability : Moderate 6-25bpm NST Review: Meets Criteria for Reactive NST NST Review: Meets Criteria for Reactive NST NST Review and Verified By : JUAN CHAVEZ RN NST Results: Reactive NST Results: Reactive NST REPORT Report Trigger: Send Report
== END 2016-11-27 12:30 | disposition home or self-care (01) ==
LOC: LC 11:44
PROVIDERS: ATTEND Specialist
PROC: 4A1HXCZ Monitoring of Products of Conception, Cardiac Rate, External Approach (ICD-10-PCS; principal; 2016-11-27)
DX: Z34.93 Encounter for supervision of normal pregnancy, unspecified, third trimester (principal); Z36 Encounter for antenatal screening of mother; Z3A.37 37 weeks gestation of pregnancy
CPT/HCPCS: 59025

== ENCOUNTER 2016-11-29 06:14 | Inpatient (IN) | payer MEDICAID ==
[2016-11-29] MEDS ORDERED: OXYTOCIN/NORMAL SALINE 1,000 ML IV PRN (06:26)
[2016-11-29] MEDS ORDERED: RINGERS SOLUTION,LACTATED 300 ML IV ONE (06:26)
[2016-11-29] MEDS ORDERED: RINGERS SOLUTION,LACTATED 1,000 ML IV PRN (06:26)
[2016-11-29 06:51] LABS: APPEARANCE,URINE SLIGHTLY-CLOUDY; BILIRUBIN,URINE NEGATIVE (NEGATIVE); GLUCOSE, URINE >=500 mg/dL (NEGATIVE); KETONES,URINE NEGATIVE (NEGATIVE); LEUKOCYTE ESTERASE,URINE NEGATIVE (NEGATIVE); NITRITE,URINE NEGATIVE (NEGATIVE); PROTEIN,URINE NEGATIVE (NEGATIVE); URINE SPECIFIC GRAVITY 1.007; UROBILINOGEN,URINE NEGATIVE mg/dL (<2.0)
[2016-11-29 07:06] LABS: URINE BARBITURATES SCREEN NEGATIVE; URINE METHADONE SCREEN NEGATIVE; URINE OPIATES LOW NEGATIVE; URINE PHENCYCLIDINE SCREEN NEGATIVE
[2016-11-29 07:08] LABS: ABSOLUTE EOSINOPHILS # (AUTO) 0.1 10^3/uL (0.0-0.6); ABSOLUTE LYMPHOCYTES (AUTO) 1.2 10^3/uL (0.5-4.7); ABSOLUTE MONOCYTES (AUTO) 0.6 10^3/uL (0.1-1.4); ABSOLUTE NEUT (AUTO) 7.5 10^3/uL (1.7-8.2); BASOPHILS % (AUTO) 0.3 % (0-2); EOSINOPHILS % (AUTO) 0.7 % (0-6); HEMATOCRIT 32.6 % (36.0-47.0); HEMOGLOBIN 11.2 g/dL (12.0-15.5); LYMPHOCYTES % (AUTO) 12.7 % (13-45); MEAN CORPUSCULAR HEMOGLOBIN 29.7 pg (27.0-33.4); MEAN CORPUSCULAR HGB CONC 34.2 g/dL (32.0-36.0); MEAN CORPUSCULAR VOLUME 87 fl (80-97); MONOCYTES % (AUTO) 6.1 % (3-13); RED BLOOD COUNT 3.76 10^6/uL (3.72-5.28); RED CELL DISTRIBUTION WIDTH 14.3 % (11.5-14.0); SEGMENTED NEUTROPHILS % (AUTO) 80.2 % (42-78); WHITE BLOOD COUNT 9.4 10^3/uL (4.0-10.5)
[2016-11-29] MEDS ORDERED: OXYTOCIN/NORMAL SALINE 20 UNIT/1,000 ML RTUINJ ONE (07:15)
--- NOTE | 2016-11-29 12:21 | L&D Progress Notes ---
PROGRESS NOTES Datetime Report Generated by CPN: 11/29/2016 12:21 PROGRESS NOTE Impression: Reassuring Heart Rate Plan: Continue Present Management; Induction Informed Consent Obtained: Vaginal Delivery Vital Signs : Reviewed; Within Normal Limits Comment: Cat 1 strip, UC's q 2-3 x 50-60, comfortable continue present management VAGINAL EXAM Dilatation: 2 Effacement: 50 Station: 0 MEMBRANES Membranes: Intact FETUS A Monitoring: External US Decelerations: None : 37.6 Presentation: Vertex SIGNATURE SIGNATURE: [id number];[id number] SIGNATURE: [id number] SIGNATURE: [id number] Assignment: Sonia Beckham MD Signature: with User ID: [email or web address] : with User ID: [email or web address]
--- NOTE | 2016-11-29 13:18 | L&D Progress Notes ---
PROGRESS NOTES Datetime Report Generated by CPN: 11/29/2016 13:18 PROGRESS NOTE Impression: Reassuring Heart Rate Procedures: Sterile Vag Exam Plan: Continue Present Management; Induction Vital Signs : Reviewed; Within Normal Limits Comment: VE= 2-3/70/vtx/0, posterior Dr. Beckham aware and has ordered to stop Pitocin x 30 minutes and give 500cc D5LR 250cc Cat 1 strip FETUS A FHR - Baseline: 130 Monitoring: External US Variability: Moderate 6-25bpm Accelerations: 15X15 Decelerations: None FETUS C SIGNATURE: [id number];[id number] Assignment: Sonia Beckham MD Signature: with User ID: [email or web address] : with User ID: [email or web address]
--- NOTE | 2016-11-29 14:21 | L&D Progress Notes ---
PROGRESS NOTES Datetime Report Generated by CPN: 11/29/2016 14:20 PROGRESS NOTE Vital Signs : Reviewed; Within Normal Limits Comment: C/O of chest pain and tightness tarun like when she had a asthma attack, pulse ox nl, color normal, no acute distress, Cat 1 strip, not anxious EKG now FETUS C SIGNATURE: [id number];[id number] Assignment: Sonia Beckham MD Signature: with User ID: [email or web address] : with User ID: [email or web address]
--- NOTE | 2016-11-29 19:00 | EKG REPORT ---
SEVERITY:- NORMAL ECG - SINUS RHYTHM : Confirmed by: Philip Bains MD 29-Nov-2016 18:59:34
[2016-11-29] MEDS ORDERED: PHENYLEPHRINE HCL INJ/PF 10 MG/1 ML SDV ONE (19:58)
[2016-11-29] MEDS ORDERED: EPHEDRINE SULFATE INJ 50 MG/1 ML AMPULE ONE (19:58)
[2016-11-29] MEDS ORDERED: FENTANYL CITRATE INJ/PF 100 MCG/2 ML AMPUL ONE (19:58)
[2016-11-29] MEDS ORDERED: FENTANYL/BUPIVACAINE/NS/PF 0 MCG/0 ML RTUINJ EPI ONE (19:59)
[2016-11-29] MEDS ORDERED: BUPIVACAINE HCL 0.25 % INJ/PF (2.5 MG/1 ML) 30 ML VIAL ONE (19:59)
[2016-11-29 20:52] LABS: HEMATOCRIT 30.1 % (36.0-47.0); HEMOGLOBIN 10.1 g/dL (12.0-15.5); HGB HCT DIFFERENCE 0.2; MEAN CORPUSCULAR HEMOGLOBIN 29.4 pg (27.0-33.4); MEAN CORPUSCULAR HGB CONC 33.7 g/dL (32.0-36.0); MEAN CORPUSCULAR VOLUME 87 fl (80-97); RED BLOOD COUNT 3.45 10^6/uL (3.72-5.28); RED CELL DISTRIBUTION WIDTH 14.3 % (11.5-14.0); WHITE BLOOD COUNT 9.2 10^3/uL (4.0-10.5)
[2016-11-29 21:06] LABS: BAND NEUTROPHILS % (MANUAL) 3 % (3-5); BASOPHILS % (MANUAL) 0 % (0-2); EOSINOPHILS % (MANUAL) 0 % (0-6); LYMPHOCYTES % (MANUAL) 15 % (13-45); TOTAL CELLS COUNTED 100
[2016-11-29 21:08] LABS: POLYCHROMASIA SLIGHT; TOXIC GRANULATION SLIGHT; TOXIC VACUOLATION PRESENT
[2016-11-29 21:10] LABS: TEAR DROP CELLS SLIGHT
[2016-11-29] MEDS ORDERED: ONDANSETRON HCL INJ/PF 4 MG/2 ML SDV IV ONE (21:45)
[2016-11-29] MEDS ORDERED: NALBUPHINE HCL INJ 10 MG/1 ML AMPULE INJ ONE (21:46)
[2016-11-29] MEDS ORDERED: ONDANSETRON HCL INJ/PF 4 MG/2 ML SDV ONE (21:50)
[2016-11-29] MEDS ORDERED: NALBUPHINE HCL INJ 10 MG/1 ML AMPULE ONE (21:50)
[2016-11-30] MEDS ORDERED: OXYTOCIN/NORMAL SALINE 20 UNIT/1,000 ML RTUINJ ONE (00:04)
--- NOTE | 2016-11-30 00:41 | L&D Progress Notes ---
PROGRESS NOTES Datetime Report Generated by CPN: 11/30/2016 00:41 PROGRESS NOTE Impression: Normal Progression of Labor Procedures: Artificial ROM; Sterile Vag Exam Plan: Induction Informed Consent Obtained: Vaginal Delivery; Induction of Labor; Risks, Benefits and Alternatives Discussed Vital Signs : Reviewed; Within Normal Limits Comment: Pt requested epidural. However, upon review of labs platlets at 0630 this am were 88. Platlets in August and platlets in May 2016 were 140's. Likely Gestational THrombocytopenia. Repeat manual count platlets 77. Reviewed with pt that unable to get epidural and will give IV pain meds prn and then pudendal for delivery. COntinue to monitor and anticipate . AROM performed with clear fluid. VAGINAL EXAM Dilatation: 4 Effacement: 70 Station: -1 Contractions: q2-3 MEMBRANES Membranes: Ruptured Amniotic Fluid Color: Clear FETUS A FHR - Baseline: 125 Monitoring: External US Variability: Moderate 6-25bpm Accelerations: 15X15 Decelerations: None FHR Category: Category I FETUS C SIGNATURE: [id number];[id number] Signature: with User ID: [email or web address]
[2016-11-30] MEDS ORDERED: LIDOCAINE 1% INJ-PF (10 MG/ML) 30 ML SDV ONE ×2 (00:51→01:06)
[2016-11-30] MEDS ORDERED: MISOPROSTOL 0.2 MG TABLET ONE (00:51)
[2016-11-30] MEDS ORDERED: ACETAMINOPHEN WITH CODEINE #3 TABLET ONE (01:41)
[2016-11-30] MEDS ORDERED: OXYTOCIN/NORMAL SALINE 1,000 ML IV PRN (04:24)
[2016-11-30] MEDS ORDERED: BENZOCAINE/MENTHOL AEROSOL SPRAY 56 ML TOP PRN (04:24)
[2016-11-30] MEDS ORDERED: ACETAMINOPHEN 325 MG TABLET PO PRN (04:24)
[2016-11-30] MEDS ORDERED: ACETAMINOPHEN WITH CODEINE #3 TABLET PO PRN ×2 (04:24)
[2016-11-30] MEDS ORDERED: ACETAMINOPHEN 650 MG SUPP.RECT PR PRN (04:24)
[2016-11-30] MEDS ORDERED: GLYCERIN/WITCH HAZEL LEAF 1 EACH MED..PAD TP PRN (04:24)
[2016-11-30] MEDS ORDERED: PROMETHAZINE HCL INJ 25 MG/1 ML VIAL IV PRN (04:24)
[2016-11-30] MEDS ORDERED: NA PHOS,M-B/NA PHOS,DI-BA (ADULT) 133 ML ENEMA PR PRN (04:24)
[2016-11-30] MEDS ORDERED: PSEUDOEPHEDRINE HCL 30 MG TABLET PO PRN (04:24)
[2016-11-30] MEDS ORDERED: MAGNESIUM HYDROXIDE SUSP 30 ML UDCUP PO PRN (04:24)
[2016-11-30] MEDS ORDERED: PROMETHAZINE HCL 25 MG SUPP.RECT PR PRN (04:24)
[2016-11-30] MEDS ORDERED: DIPHENHYDRAMINE HCL 25 MG CAPSULE PO PRN (04:24)
[2016-11-30] MEDS ORDERED: DIBUCAINE 1% OINTMENT 28 GM TP PRN (04:24)
[2016-11-30] MEDS ORDERED: MEASLES,MUMPS&RUBELLA VACC/PF 0.5 ML VIAL SUBCUT PRN (04:24)
[2016-11-30] MEDS ORDERED: DIPH/PERTUSS(ACELL)/TETANUS VAC/PF 0.5 ML SYR (>=10YO) IM PRN (04:24)
[2016-11-30] MEDS ORDERED: ZOLPIDEM TARTRATE 5 MG TABLET PO PRN (04:24)
[2016-11-30] MEDS ORDERED: PROMETHAZINE HCL 25 MG TABLET PO PRN (04:24)
--- NOTE | 2016-11-30 04:51 | Admission Physical ---
Datetime Report Generated by N: 11/30/2016 04:50 CURRENT ADMISSION Chief Complaint: Scheduled Induction of Labor Chief Complaint Other: IUGR Indication for Induction: IUGR Admit Plan: Admit to Unit; Initiate Labor Induction Protocol ALLERGIES Medication Allergies: No Medication Allergies: No Known Allergies (11/29/2016) Medication Allergies: No Known Allergies (10/22/2016) Medication Allergies: No Known Allergies (06/25/2016) Latex: No Latex Allergies (Annotations: Data stored by [facility] on behalf of user) Latex: No Latex Allergies Food Allergies: None Environmental Allergies: None OBSTETRICAL HISTORY EDC: 12/14/2016 00:00 : 1 Para: 0 Term: 0 : 0 SAB: 0 IAB: 0 Ectopic: 0 Livin Cesareans: 0 VBACs: 0 Multiple Births: 0 Gestational Diabetes: No Rh Sensitization: No Incompetent Cervix: No CORNELIO: No Infertility: No ART Treatment: No Uterine Anomaly: No IUGR: Yes Hx Previous C/S: No Macrosomia: No Hx Loss/Stillborn: No PIH: No Hx : No Placenta Previa/Abruption: Yes Depression/PP Depression: No PTL/PROM: No Post Hemorrhage: No Current Procedures: Ultrasound; NST Obstetrical History Comments: G1 - current (previa that pt was told was resolved), IUGR SEE RECORDS Alcohol: No Marijuana : No Cocaine: No Other Illicit Drugs: No Cigarettes: Former Smoker. 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 Surgery: No Heart Disease: No Hosp/Surgery: Yes Autoimmune Disorder: No Anesthetic Complications: No Kidney Disease: No Abnormal Pap Smear: No Neuro/Epilepsy: No Psychiatric Disorders: No Other Medical Diseases: No Hepatitis/Liver Disease: No Significant Family History: No Varicosities/Phlebitis: No Trauma/Violence : No Thyroid Dysfunction: No Medical History Comments: EGD and colonoscopy in 2008 d/t ulcers INFECTIOUS HISTORY Gonorrhea: No Genital Herpes: No Chlamydia: No Tuberculosis: No Syphilis: No Hepatitis: No HIV/AIDS Exposure: No Rash or Viral Illness: No HPV: No PHYSICAL EXAM General: Normal HEENT: Normal Neurologic: Normal Thyroid: Normal Heart: Normal Lungs: Normal Breast: Deferred Back: Normal Abdomen: Normal Genitourinary Exam: Normal Extremities: Normal DTRs: Normal Pelvic Type: Adequate Physical Exam Comments: GBS neg VAGINAL EXAM Dilatation: 4 Dilatation: 2 Effacement: 70 Effacement: 50 Station: -1 Station: 0 Contraction Comments: q2-3 MEMBRANES Membranes: Ruptured Membranes: Intact Amniotic Fluid Color: Clear FETUS A EGA: 37.6 Monitoring: External US FHR- Baseline: 155 Variability: Moderate 6-25bpm Decelerations: None Presentation: Vertex Admit Comment: Admitted to L_D for IOL IUGR, Dr. Beckham @ BS, sono = Vtx, Cat 1 strip Will start Pitocin and ROM, anticipate , no bleeding Pt and hsb understands POC PLANS FOR LABOR AND DELIVERY Labor and Delivery: None Pain Management: Epidural Feeding Preference: Breast Benefit of Breast Feed Discussed: Yes Circumcision: N/A INFORMED CONSENT Informed Consent Obtained: Vaginal Delivery; Induction of Labor; Risks, Benefits and Alternatives Discussed Informed Consent Obtained: Vaginal Delivery Assignment: Sonia Beckham MD Signature: with User ID: [email or web address] : with User ID: [email or web address]
--- NOTE | 2016-11-30 05:25 | Delivery Summary ---
Del Sum A-C Datetime Report Generated by CPN: 11/30/2016 05:24 DELIVERY PERSONNEL DELIVERY PERSONNEL: [id number];[id number];[id number];[id number] Delivery Doctor:: Sonia Beckham MD Labor and Delivery Nurse:: Alee Valente RN Nursery Nurse:: JORDY Goel/WADE: Keesha Srinivasan ST MATERNAL INFORMATION Delivery Anesthesia: Pudendal Medications After Delivery: Pitocin Drip 20 Units/1000ml NSS; Other-Please Comment Meds After Delivery Comment: cytotec 1000 mcg Maternal Complications: None Provider Comments: Cvx c/c/+2, Pudendal block performed in the usual fashion. VFI delivered in [place] presentation with loose nuchal cord shoulders delivered w/o difficulty. Cord doubly clamped and cut and to maternal abdomen for NRP. Placenta delivered intact spontaneously - bilobed. FF at U. Lacerations repaired in usual fashion. Good hemostasis. 8/9. Weights pending. Mother and baby stable upon provider leaving the room. LABOR SUMMARY EDC: 12/14/2016 00:00 No. Babies in Womb: 1 Attempted: No Labor Anesthesia: None LABOR INFORMATION Onset of Labor: 11/29/2016 15:11 Complete Dilatation: 11/30/2016 01:03 Oxytocin: Induction Group B Beta Strep: negative (Annotations: Data stored by CPN on behalf of user) Antibiotics # of Doses: n/a Steroids Given: None Reason Steroids Not Administered: Not Applicable MEMBRANES Membranes Rupture Method: Artificial Rupture of Membranes: 11/29/2016 21:13 Length of Rupture (hr): 4.12 Amniotic Fluid Color: Clear Amniotic Fluid Amount: Moderate STAGES OF LABOR Stage 1 hr: 9 Stage 1 min: 52 Stage 2 hr: 0 Stage 2 min: 17 Stage 3 hr: 0 Stage 3 min: 4 Total Time in Labor hr: 10 Total Time in Labor min: 13 VAGINAL DELIVERY Episiotomy: None Laceration Extension: Second Degree Laceration Type: Vaginal Laceration Repair Note: Left labial laceration and left vaginal sidewall superficial laceration repaired with good hemostasis. Sponge Count Correct: Yes Sharps Count Correct: Yes CSECTION DELIVERY Primary Indication: N/A Secondary Indication: N/A CSection Incidence: N/A Labor: N/A Elective: N/A CSection Incision: N/A BABY A INFORMATION Infant Delivery Date/Time: 11/30/2016 01:20 Method of Delivery: Vaginal Born in Route : No : N/A Forceps: N/A Vacuum Extraction: N/A Shoulder Dystocia : No PRESENTATION/POSITION BABY A Presentation: Cephalic Cephalic Presentation: Vertex Vertex Position: Left Occipital Anterior Breech Presentation: N/A PLACENTA INFORMATION BABY A Placenta Delivery Time : 11/30/2016 01:24 Placenta Method of Delivery: Spontaneous Placenta Status: Delivered SCORES BABY A Heart Rate 1 min: >100 bpm Resp Effort 1 min: Good Cry Reflex Irritability 1 min: Cough or Sneeze or Pulls Away Muscle Tone 1 min: Active Motion Color 1 min: Blue/Pale Resuscitation Effort 1 min: Tactile Stimulation SCORE 1 MIN: 8 Heart Rate 5 min: >100 bpm Resp Effort 5 min: Good Cry Reflex Irritability 5 min: Cough or Sneeze or Pulls Away Muscle Tone 5 min: Active Motion Color 5 min: Body [place], Extremities Blue Resuscitation Effort 5 min: Tactile Stimulation SCORE 5 MIN: 9 INFORMATION BABY A Gestational Age at Delivery: 38.0 Gestational Status: Early Term- 37- 38.6 Weeks Outcome : Liveborn Condition : Stable Sex: Female IDENTIFICATION BABY A Verification Date/Time: 11/30/2016 04:21 ID Band Number: [id number] Mother's Name Verified: Yes RN Verifying Infant: RN [facility] Additional Verifying Personnel: RN Ring WEIGHT/LENGTH BABY A Infant Birthweight (gm): 2565 Weight (lb): 5 Weight (oz): 10 Length (in): 19.00 Length (cm): 48.26 CORD INFORMATION BABY A No. Cord Vessels: 3 Nuchal Cord : Around Neck x1, Loose Cord Blood Taken: Yes-For Storage (Mom's Blood type +) Infant Suction: Mouth; Nose ASSESSMENT BABY A Infant Complications: None Physical Findings at Delivery: Within Normal Limits Physical Findings- Other: See complete nursery assessment Respirations: Appears Normal Skin to Skin: Yes Skin to Skin Time (min): 120 Soil Science Professor/ALS Called : No Infant Care By: MallikaZana Connolly RN Transferred To: Remains with Mother BABY B INFORMATION : N/A SIGNATURES Signature: with User ID: [email or web address]
[2016-11-30] MEDS ORDERED: IBUPROFEN 800 MG TABLET PO SCH (06:00)
--- NOTE | 2016-11-30 09:55 | PDOC PROGRESS REPORT ---
Subjective-OB Subjective: Post Delivery Day: 21 year old. Denies any needs at this time Doing well, holding baby, hsb in room, no c/o, breast feeding, denies chest pain Physical Exam (OB) Vital Signs: Temp Pulse Resp BP Pulse Ox 98.1 F 100 15 124/72 99 11/30/16 09:00 11/30/16 09:00 11/30/16 09:00 11/30/16 09:00 11/30/16 09:00 Intake & Output 11/29/16 11/30/16 12/01/16 06:59 06:59 06:59 Weight 63.25 kg - Lochia Lochia Amount: Small 10-25 ml Lochia Color: Rubra/Red - Abdomen Fundal Description: Firm Fundal Height: u/u - u/2 Objective-Diagnostic Laboratory: 11/29/16 20:30 11/29/16 20:30 WBC 9.2 RBC 3.45 L Hgb 10.1 L Hct 30.1 L MCV 87 MCH 29.4 MCHC 33.7 RDW 14.3 H Plt Count 77 L Seg Neutrophils % Not Reportable Lymphocytes % Not Reportable Monocytes % Not Reportable Eosinophils % Not Reportable Basophils % Not Reportable Absolute Neutrophils Not Reportable Absolute Lymphocytes Not Reportable Absolute Monocytes Not Reportable Absolute Eosinophils Not Reportable Absolute Basophils Not Reportable Assessment and Plan(PN) - Assessment and Plan (1) (normal spontaneous vaginal delivery) Is this a current diagnosis for this admission?: Yes (2) IUGR (intrauterine growth restriction) Is this a current diagnosis for this admission?: Yes (3) Thrombocytopenia complicating Is this a current diagnosis for this admission?: Yes - Time Spent with Patient Time with patient: Less than 15 minutes Medications reviewed and adjusted accordingly: Yes - Disposition Anticipated Discharge: Home Within: within 24 hours
[2016-11-30 10:41] LABS: HEMATOCRIT 29.1 % (36.0-47.0); HEMOGLOBIN 9.9 g/dL (12.0-15.5); HGB HCT DIFFERENCE 0.6; MEAN CORPUSCULAR HEMOGLOBIN 29.7 pg (27.0-33.4); MEAN CORPUSCULAR VOLUME 87 fl (80-97); RED BLOOD COUNT 3.33 10^6/uL (3.72-5.28); RED CELL DISTRIBUTION WIDTH 14.5 % (11.5-14.0); WHITE BLOOD COUNT 9.9 10^3/uL (4.0-10.5)
[2016-11-30] MEDS: DOCUSATE SODIUM 100 MG CAPSULE PO SCH ×2 (10:49→18:52)
[2016-11-30] MEDS: SENNOSIDES/DOCUSATE 8.6-50 MG 1 EACH TABLET PO SCH (10:49)
[2016-11-30] MEDS: PRENATAL VITAMIN W-O CA NO5/FE FUMARATE/FA CAPSULE PO SCH (10:49)
[2016-11-30] MEDS: FERROUS SULFATE 325 MG TABLET PO SCH ×2 (10:50→18:52)
[2016-11-30] MEDS: FAMOTIDINE 20 MG TABLET PO SCH ×2 (10:50→23:05)
[2016-12-01 07:05] LABS: HEMATOCRIT 30.7 % (36.0-47.0); HEMOGLOBIN 10.4 g/dL (12.0-15.5); HGB HCT DIFFERENCE 0.5; MEAN CORPUSCULAR HGB CONC 33.8 g/dL (32.0-36.0); MEAN CORPUSCULAR VOLUME 89 fl (80-97); RED BLOOD COUNT 3.45 10^6/uL (3.72-5.28); RED CELL DISTRIBUTION WIDTH 14.3 % (11.5-14.0); WHITE BLOOD COUNT 8.3 10^3/uL (4.0-10.5)
[2016-12-01] MEDS: PRENATAL VITAMIN W-O CA NO5/FE FUMARATE/FA CAPSULE PO SCH (10:51)
[2016-12-01] MEDS: FERROUS SULFATE 325 MG TABLET PO SCH (10:51)
[2016-12-01] MEDS: DOCUSATE SODIUM 100 MG CAPSULE PO SCH (10:51)
[2016-12-01] MEDS: FAMOTIDINE 20 MG TABLET PO SCH (10:51)
[2016-12-01] MEDS: SENNOSIDES/DOCUSATE 8.6-50 MG 1 EACH TABLET PO SCH (10:52)
--- NOTE | 2016-12-01 11:06 | PDOC PROGRESS REPORT ---
Subjective-OB Subjective: Post Delivery Day: 21 year old. Denies any needs at this time Doing well, ready to go home, no chest pain, normal bleeding, eating well, voiding Physical Exam (OB) Vital Signs: Temp Pulse Resp BP Pulse Ox 98.5 F 69 12 123/72 100 12/01/16 07:57 12/01/16 07:57 12/01/16 07:57 12/01/16 07:57 12/01/16 07:57 - PIH/Pre-Eclampsia Clonus: Negative Headache: Absent Epigastric Pain: No Visual Changes: No - Lochia Lochia Amount: Small 10-25 ml Lochia Color: Rubra/Red - Abdomen Description: Soft, Round Hernia Present: No Fundal Description: Firm, Midline Fundal Height: u/u - u/2 Objective-Diagnostic Laboratory: 12/01/16 06:40 11/30/16 12/01/16 10:31 06:40 WBC 9.9 8.3 RBC 3.33 L 3.45 L Hgb 9.9 L 10.4 L Hct 29.1 L 30.7 L MCV 87 89 MCH 29.7 30.0 MCHC 34.0 33.8 RDW 14.5 H 14.3 H Plt Count 98 L 105 L Assessment and Plan(PN) - Assessment and Plan (1) (normal spontaneous vaginal delivery) Is this a current diagnosis for this admission?: Yes (2) IUGR (intrauterine growth restriction) Is this a current diagnosis for this admission?: Yes (3) Thrombocytopenia complicating Is this a current diagnosis for this admission?: Yes - Time Spent with Patient Time with patient: Less than 15 minutes Medications reviewed and adjusted accordingly: Yes - Disposition Anticipated Discharge: Home Within: Other - home today
--- NOTE | 2016-12-01 11:09 | PDOC DISCHARGE SUMMARY ---
Final Diagnosis Discharge Date: 12/01/16 - Final Diagnosis (1) (normal spontaneous vaginal delivery) Is this a current diagnosis for this admission?: Yes (2) IUGR (intrauterine growth restriction) Is this a current diagnosis for this admission?: Yes (3) Thrombocytopenia complicating Is this a current diagnosis for this admission?: Yes Discharge Data - Discharge Medication Home Medications: Vit/Iron Fumarate/FA [ Tablet] 1 tab PO DAILY 09/15/16 Gestational Age: 38 Reason(s) for Admission: Induction of Labor - IUGR Intrapartum Procedure(s): Spontaneous Vaginal Delivery Complication(s): Laceration-Labial - Data Baby 1 Female at 1 minute: 8 at 5 minutes: 9 Weight: 2.551 kg Home with Mother: Yes Complications: No - Diagnosis Test Laboratory: Temp Pulse Resp BP Pulse Ox 98.5 F 69 12 123/72 100 12/01/16 07:57 12/01/16 07:57 12/01/16 07:57 12/01/16 07:57 12/01/16 07:57 11/29/16 11/29/16 11/29/16 06:29 06:47 20:30 RBC 3.76 3.45 L Hgb 11.2 L 10.1 L Hct 32.6 L 30.1 L Urine Opiates Screen NEGATIVE 11/30/16 12/01/16 10:31 06:40 RBC 3.33 L 3.45 L Hgb 9.9 L 10.4 L Hct 29.1 L 30.7 L Urine Opiates Screen - Discharge information/Instructions Discharge Activity: Activity As Tolerated, Balance Activity w/Rest, No Lifting Over 10 Pounds, No Lifting/Push/Pulling, Pelvic Rest Discharge Diet: As Tolerated, Regular Disposition: HOME, SELF-CARE Follow up with: [facility] in: 4, Weeks
[2016-12-01 12:54] VITALS: BP 124/72
== END 2016-12-01 15:14 | disposition home or self-care (01) | DRG 775 ==
LOC: LR 06:14 → 2S 11-30 04:46
PROVIDERS: ADMIT Student in an Organized Health Care Education/Training Program; ATTEND Student in an Organized Health Care Education/Training Program
PROC: 10907ZC Drainage of Amniotic Fluid, Therapeutic from Products of Conception, Via Natural or Artificial Opening (ICD-10-PCS; 2016-11-29)
PROC: 10E0XZZ Delivery of Products of Conception, External Approach (ICD-10-PCS; principal; 2016-11-30)
PROC: 0KQM0ZZ Repair Perineum Muscle, Open Approach (ICD-10-PCS; 2016-11-30)
DX: O70.1 Second degree perineal laceration during delivery (principal); Z37.0 Single live birth; Z3A.38 38 weeks gestation of pregnancy; O99.12 Other diseases of the blood and blood-forming organs and certain disorders involving the immune mechanism complicating childbirth; D69.6 Thrombocytopenia, unspecified; O69.81X0 Labor and delivery complicated by cord around neck, without compression, not applicable or unspecified; O36.5930 Maternal care for other known or suspected poor fetal growth, third trimester, not applicable or unspecified
CPT/HCPCS: 36415; 80307; 81005; 85025; 85027; 86592; 86850; 86900; 86901; 88307; 93005; 93010; 94760; J2300; J2370; J2405; J2590; J3010; J3490